=== PATIENT | male | born 1985 | race Two or more races ===

== ENCOUNTER 2019-09-15 12:41 | Emergency (ER) | payer SELFPAY ==
[~2019-09-15] VITALS: Ht 172.7 cm; Wt 68.0 kg
[2019-09-15 13:08] VITALS: BP 111/67
[2019-09-15 14:20] LABS: Basophils # (auto) 0 uL; Basophils % (auto) 0.3 % (0.0-2.0); Eosinophils # (auto) 0.1 uL; Eosinophils % (auto) 1.9 % (0.0-7.0); Hematocrit 47.5 % (41.0-53.0); Hemoglobin 16.2 g/dL (13.5-17.5); Lymphocytes # (auto) 1.4 uL; Lymphocytes % (auto) 37.9 % (10.0-50.0); Mean Corpuscular Hemoglobin 32.6 pg (28.0-32.0); Mean Corpuscular Hgb Conc. 34.1 g/dL (32.0-36.0); Mean Corpuscular Volume 95.5 fL (80.0-100.0); Monocytes # (auto) 0.5 uL; Monocytes % (auto) 13.3 % (0.0-12.0); Neutrophils # (auto) 1.7 uL; Neutrophils % (auto) 46.6 % (37.0-80.0); Nucleated Red Blood Cells % 0.4 %; Platelet Count (auto) 141 10^3/uL (140-450); Red Blood Cells 4.97 10^6/uL (4.5-5.90); Red Cell Distribution Width 11.9 % (11.8-14.3); White Blood Cell 3.6 10^3/uL (4.4-10.8)
[2019-09-15 14:39] LABS: Alanine Aminotransferase 26 U/L (16-61); Albumin 4.1 g/dL (3.4-5.0); Anion Gap 4 (5-15); Blood Urea Nitrogen 14 mg/dL (7-18); Calcium 8.9 mg/dL (8.5-10.1); Carbon Dioxide 29 mmol/L (21-32); Chloride 109 mmol/L (98-107); Glucose 84 mg/dL (74-106); Potassium 5.1 mmol/L (3.5-5.1); Sodium 142 mmol/L (136-145)
[2019-09-15 14:44] LABS: Alkaline Phosphatase 75 U/L (45-117); Aspartate Aminotransferase 19 U/L (15-37); BUN/Creatinine Ratio 13.6; Bilirubin, Total 0.3 mg/dL (0.2-1.0); GFR African American 107 mL/min; GFR Non-African American 88 mL/min; Total Protein 7.7 g/dL (6.4-8.2)
== END 2019-09-15 15:07 | disposition home or self-care (01) ==
LOC: ER 12:48
DX: J10.1 Influenza due to other identified influenza virus with other respiratory manifestations (principal)
CPT/HCPCS: 36415; 70450; 71046; 80053; 83735; 83880; 84484; 85025; 87804; 93005

== ENCOUNTER → 2020-08-18 | Emergency (ER) | payer OTHER ==
[~2020-08-18] VITALS: Ht 172.7 cm; Wt 73.9 kg
[~2020-08-18] MED LIST: ALBUTEROL SULF 2.5 MG/0.5ML(0.5%) NEB SOLN NEB ONE; DexAMETHasone SOD PHOS 10MG/1ML VIAL INJ IM ONE; IPRATROPIUM BROM 0.5 MG/2.5ML INH SOL NEB ONE
[2020-08-18 00:40] VITALS: BP 126/87
[2020-08-18 04:15] LABS: Basophils # (auto) 0 10 ^3/uL (0-0.2); Basophils % (auto) 0.3 % (0.0-2.0); Eosinophils # (auto) 0.8 10 ^3/uL (0-0.8); Eosinophils % (auto) 6.1 % (0.0-7.0); Hematocrit 48.7 % (41.0-53.0); Hemoglobin 15.9 g/dL (13.5-17.5); Lymphocytes # (auto) 3.9 10 ^3/uL (0.4-5.4); Lymphocytes % (auto) 31.1 % (10.0-50.0); Mean Corpuscular Hemoglobin 31.4 pg (28.0-32.0); Mean Corpuscular Hgb Conc. 32.7 g/dL (32.0-36.0); Monocytes # (auto) 0.9 10 ^3/uL (0-1.3); Monocytes % (auto) 7.5 % (0.0-12.0); Neutrophils # (auto) 6.9 10 ^3/uL (1.6-8.6); Nucleated Red Blood Cells % 0.2 %; Platelet Count (auto) 256 10^3/uL (140-450); Red Blood Cells 5.07 10^6/uL (4.5-5.90); Red Cell Distribution Width 12.6 % (11.8-14.3); White Blood Cell 12.6 10^3/uL (4.4-10.8)
[2020-08-18 04:33] LABS: Albumin 4.3 g/dL (3.4-5.0); BUN/Creatinine Ratio 14.3; Calcium 9.2 mg/dL (8.5-10.1); Potassium 4.7 mmol/L (3.5-5.1)
[2020-08-18 04:35] LABS: Bilirubin, Total 0.2 mg/dL (0.2-1.0); Total Protein 8.1 g/dL (6.4-8.2)
== END | disposition home or self-care (01) ==
LOC: ER 00:18
DX: J45.909 Unspecified asthma, uncomplicated (principal); Z20.828 Contact with and (suspected) exposure to other viral communicable diseases
CPT/HCPCS: 36415; 71045; 80053; 85025; 87426; 96372; 99284; C9803; J1100; U0003

== ENCOUNTER 2022-01-08 11:56 | Emergency (ER) | payer MEDICAID, OTHER ==
[~2022-01-08] VITALS: Ht 175.3 cm; Wt 72.6 kg
[2022-01-08] MEDS ORDERED: NEOMYCIN-BACITRACIN-POLYM UNITDOSE PKG TOP OINT TOP ONE (12:30)
[2022-01-08] MEDS ORDERED: SODIUM CHLORIDE 0.9% 1,000 ML IV ONE ×2 (12:30)
[2022-01-08] MEDS ORDERED: ONDANSETRON HCL 4 MG/2 ML VIAL IV ONE (12:30)
[2022-01-08] MEDS ORDERED: MORPHINE SULFATE 4 MG/ML SYR/VIAL IV ONE (12:30)
[2022-01-08] MEDS ORDERED: SILVER SULFADIAZINE 1 % TOPICAL CREAM 50GM TOP ONE (15:00)
[2022-01-08] MEDS ORDERED: NEOMOIN6 EX (15:16)
[2022-01-08] MEDS ORDERED: IBU600T PO (15:16)
[2022-01-08] MEDS ORDERED: SILV1CRE82 TOP (15:16)
[2022-01-08 16:00] VITALS: BP 103/55
== END 2022-01-08 16:36 | disposition home or self-care (01) ==
LOC: ER 11:56
DX: T23.002A Burn of unspecified degree of left hand, unspecified site, initial encounter (principal); T22.012A Burn of unspecified degree of left forearm, initial encounter; T21.02XA Burn of unspecified degree of abdominal wall, initial encounter; X10.2XXA Contact with fats and cooking oils, initial encounter; Y93.89 Activity, other specified; Y92.89 Other specified places as the place of occurrence of the external cause; Y99.8 Other external cause status
CPT/HCPCS: 16020; 96361; 96374; 96375; 99285; J2270; J2405; J7030

== ENCOUNTER 2024-01-21 19:34 | Emergency (ER) | payer MEDICAID ==
[~2024-01-21] VITALS: Ht 170.2 cm; Wt 72.7 kg
[~2024-01-21 19:34] MED LIST changes: -ALBUTEROL SULF 2.5 MG/0.5ML(0.5%) NEB SOLN NEB ONE; -DexAMETHasone SOD PHOS 10MG/1ML VIAL INJ IM ONE; +IBU600T PO; -IPRATROPIUM BROM 0.5 MG/2.5ML INH SOL NEB ONE; +NEOMOIN6 EX; +SILV1CRE82 TOP
[2024-01-21 22:35] VITALS: BP 117/90; PULSE 70; RESP 20; TEMP 98.2; O2SAT 99
[2024-01-21] MEDS: KETOROLAC TROMETH 60MG/2ML VIAL IM ONE (22:53)
[2024-01-21] MEDS ORDERED: HYDR-4902 PO (23:08)
== END 2024-01-21 23:23 | disposition home or self-care (01) ==
LOC: ER 19:34
DX: R22.0 Localized swelling, mass and lump, head (principal); L02.811 Cutaneous abscess of head [any part, except face]; F17.210 Nicotine dependence, cigarettes, uncomplicated; F12.10 Cannabis abuse, uncomplicated
CPT/HCPCS: 96372; 99283; J1885

== ENCOUNTER 2024-07-07 21:08 | Emergency (ER) | payer MEDICAID ==
[~2024-07-07] VITALS: Ht 170.2 cm; Wt 68.1 kg
[~2024-07-07 21:08] MED LIST changes: +HYDR-4902 PO
[2024-07-07] MEDS ORDERED: HYDR-4902 PO (22:31)
[2024-07-07] MEDS: HYDROcodone-ACET 5/325MG TAB PO ONE (22:53)
[2024-07-07 22:54] VITALS: PULSE 64
[2024-07-08 00:56] VITALS: BP 133/81; TEMP 97.5
[2024-07-08 00:57] VITALS: PULSE 58; RESP 18; O2SAT 100
== END 2024-07-08 00:58 | disposition home or self-care (01) ==
LOC: ER 21:08
DX: S61.012A Laceration without foreign body of left thumb without damage to nail, initial encounter (principal); R55 Syncope and collapse; F17.210 Nicotine dependence, cigarettes, uncomplicated; Z79.899 Other long term (current) drug therapy; W26.0XXA Contact with knife, initial encounter; Y93.89 Activity, other specified; Y92.89 Other specified places as the place of occurrence of the external cause; Y99.8 Other external cause status
CPT/HCPCS: 70450; 82962